=== PATIENT | female | born 2000 | race Caucasian/White ===

== ENCOUNTER 2021-06-14 00:01 | Inpatient (IN) | payer OTHER, SELFPAY ==
[2021-06-14] VITALS (127 sets, daily range): BP systolic 85–128; BP diastolic 40–89; PULSE 61–225; RESP 18–20; TEMP 36.1–36.9; O2SAT 95–100; BMI 26.1
[2021-06-14] MEDS: DINOPROSTONE 10 MG VAG INSERT VAGINAL (01:16)
[2021-06-14 02:15] LABS: Basophils Percent Auto 0.3 % (0.2-1.2); Eosinophils Absolute Auto 0.7 K/mm3 (0-0.3); Eosinophils Percent Auto 6.5 % (0-4.4); Hematocrit 30.1 % (37.0-47.0); Hemoglobin 9.5 g/dL (12.0-15.0); Immature Granulocyte Absolute 0.07 K/mm3 (0.00-0.031); Immature Granulocyte Percent A 0.7 % (0-0.5); Lymphocytes Absolute Auto 2.69 K/mm3 (0.9-3.2); Lymphocytes Percent Auto 26.7 % (18.3-44.2); Mean Corpuscular HGB Conc 31.6 g/dl (32-36); Mean Corpuscular Hemoglobin 24.9 pg (26-34); Mean Corpuscular Volume 78.8 fl (80-100); Mean Platelet Volume 11.6 fl (7.4-10.4); Monocytes Absolute Auto 0.9 K/mm3 (0.1-0.6); Neutrophils Absolute Auto 5.7 K/mm3 (1.3-6.7); Neutrophils Percent Auto 56.8 % (45.5-73.1); Platelet Count Result 230 k/mm3 (150-375); Red Blood Count 3.82 M/mm3 (4.2-5.4); White Blood Count 10.1 K/mm3 (4.5-10.0)
--- NOTE | 2021-06-14 02:49 | LDADM ---
This patient, Gabby Shah, was admitted to Labor/Delivery/Recovery 104 on 06/14/21 at 00:01. Plans for labor, pain management and were discussed with patient. Patient/family oriented to hospital policies and general routines including ID bracelet, bed and alarms, visiting hours, pain management, procedures, bathroom and other care routines, personal items, smoking policy, room service/diet and guest tray routines, infant security routines, and visiting hours. Patient/Family are encouraged to report perceived risks to care and to ask questions if they do not understand what they are told or what they should do. See OBIX for further documentation.
[2021-06-14 09:25] LABS: Rapid Plasma Reagin Non-Reactive (NonReactive)
--- NOTE | 2021-06-14 12:17 | PM.IMHP ---
H&P: HPI History of Present Illness Date/Time: 06/14/21 12:17 20yo at 39w0d presenting for elective term induction of labor. Doing well, feeling some contractions. No other issues or complaints. Chief Complaint: Induction of labor Review of Systems Constitutional: Constitutional: Reports no additional constitutional complaints Eyes: Eyes: Reports no additional eye complaints ENT: Reports system reviewed and no additional complaints, except as documented Cardiovascular: Cardiovascular: Reports no additional cardiovascular complaints Respiratory: Respiratory: Reports no additional respiratory complaints Gastrointestinal: Gastrointestinal: Reports no additional gastrointestinal complaints Genitourinary: Genitourinary: Reports no additional female genitourinary complaints Musculoskeletal: Musculoskeletal: Reports no additional musculoskeletal complaints Integumentary/Breasts: Skin/Breast: Reports system reviewed and no additional complaints, except as docu Neurologic: Reports system reviewed and no additional complaints, except as documented Psychiatric: Psychiatric: Reports no additional psychiatric complaints Endocrine: Endocrine: Reports no additional endocrine complaints Hematologic/Lymphatic: Hematologic/Lymphatic: Reports no additional hematologic/lymphatic complaints Allergic/Immunologic: Allergic/Immunologic: Reports no additional allergic/immunologic complaints [facility] Family History Family History Other No pertinent family history Social History Social History Smoking status: Former smoker Substance use: never Gender identity (if verbalized by the patient): Female Spiritual care concerns: No Meds Home Medications and Allergies Home Medications Medication Instructions Recorded Confirmed Type PNV cmb#95-ferrous fumarate-FA 1 tablet PO DAILY 06/11/21 06/11/21 History [] Allergies Allergy/AdvReac Type Severity Reaction Status Date / Time cyclobenzaprine Allergy Unknown Unknown Verified 03/01/19 12:50 Vital Signs Vital Signs - 24 hr 06/14/21 00:46 06/14/21 00:47 06/14/21 01:00 Temperature 36.1 C L Pulse Rate 79 87 Respiratory Rate Blood Pressure 107/67 115/66 06/14/21 01:30 06/14/21 01:45 06/14/21 02:00 Temperature Pulse Rate 82 92 94 Respiratory Rate Blood Pressure 114/69 112/60 92/61 L 06/14/21 02:15 06/14/21 02:30 06/14/21 02:45 Temperature Pulse Rate 66 70 86 Respiratory Rate Blood Pressure 87/40 L 86/40 L 92/52 L 06/14/21 03:00 06/14/21 03:05 06/14/21 03:16 Temperature Pulse Rate 81 84 84 Respiratory Rate Blood Pressure 88/44 L 108/61 101/54 L 06/14/21 07:21 06/14/21 07:22 06/14/21 09:29 Temperature 36.3 C L 36.2 C L Pulse Rate 80 Respiratory Rate 18 20 Blood Pressure 121/63 06/14/21 09:30 Temperature Pulse Rate 73 Respiratory Rate Blood Pressure 93/41 L Exam Const: General: cooperative, healthy appearing, comfortable, no acute distress, well developed, alert, awake and Physically active Resp: Effort & Inspection: normal respiratory effort, able to speak in complete sentences, normal respiratory pattern, no audible wheezes and no cough Cardio: Rate: regular rate GI: GI Palp: No abdominal tenderness, Yes Soft to palpation and No Tenderness to palpation present (GI) : Manual OB Exam: other (deferred, cervidil in place) Neuro: General: oriented to person, oriented to place and oriented to time Psych: Appearance: grossly normal Mental Status: mental status grossly normal Speech and movement: Normal speech and movement present Affect: normal affect Attitude: cooperative Thought process: Normal thought process present Thought content: Yes Normal thought content present Insight: Good insight present (Psych) Judgement: Good judgement present (Psych) H&P: Results Labs
--- NOTE | 2021-06-14 12:28 | WPDHPUPDATE1 ---
History and Physical Update Update Date/Time: 06/14/21 12:28 History and Physical has been reviewed, including an updated exam of the patient. There are NO changes in the patient's condition. Risks, benefits, and alternatives have been discussed and questions answered. Patient agrees to proceed with procedure.
[2021-06-14] MEDS: LACTATED RINGERS 1,000 ML 125 ML IV CONT ×3 (13:30→20:43)
[2021-06-14] MEDS: OXYTOCIN 30 UNITS/NS 500 ML 30 UNITS/500 ML BAG IV CONT (13:30)
--- NOTE | 2021-06-14 14:05 | PM.OBPNVD ---
OB - PN: Subj Subjective Date/time seen: 06/14/21 14:05 AROM. Clear fluid. 2.5/40/-3. Category 1 tracing. OB - PN: Obj Data Labs CBC & Chem 7: 06/14/21 01:11 Labs: Laboratory Results - last 24 hr 06/14/21 06/14/21 06/14/21 01:11 01:11 01:11 WBC 10.1 H RBC 3.82 L Hgb 9.5 L Hct 30.1 L MCV 78.8 L MCH 24.9 L MCHC 31.6 L RDW 15.0 H Plt Count 230 MPV 11.6 H Immature Gran % (Auto) 0.7 H Neut % (Auto) 56.8 Lymph % (Auto) 26.7 Garrard % (Auto) 9.0 H Eos % (Auto) 6.5 H Baso % (Auto) 0.3 Lymph # (Auto) 2.69 Garrard # (Auto) 0.9 H Eos # (Auto) 0.7 H Baso # (Auto) 0.0 Abs Immat Gran (auto) 0.07 H Absolute Neuts (auto) 5.7 Absolute Nucleated RBC 0.0 Nucleated RBC % 0.0 RPR Non-reactive HIV 1&2 Ab/P24 Ag 4thGn Cancelled Blood Type Antibody Screen 06/14/21 01:11 WBC RBC Hgb Hct MCV MCH MCHC RDW Plt Count MPV Immature Gran % (Auto) Neut % (Auto) Lymph % (Auto) Garrard % (Auto) Eos % (Auto) Baso % (Auto) Lymph # (Auto) Garrard # (Auto) Eos # (Auto) Baso # (Auto) Abs Immat Gran (auto) Absolute Neuts (auto) Absolute Nucleated RBC Nucleated RBC % RPR HIV 1&2 Ab/P24 Ag 4thGn Blood Type A Positive Antibody Screen Negative OB - PN A/P Time Spent With Patient Time: Total time spent is greater than 50% in coordination of care (as documented) at patient's floor/unit and/or counseling patient:
[2021-06-15] VITALS (17 sets, daily range): BP systolic 103–122; BP diastolic 59–82; PULSE 56–95; RESP 16–18; TEMP 36.4–37; O2SAT 99–100
--- NOTE | 2021-06-15 00:04 | PM.OBPRVD ---
OB - Delivery Note Procedure Delivery date: 06/14/21 Procedure: Normal spontaneous vaginal delivery complicated by shoulder dystocia Induction method: AROM, per pitocin protocol and per cervidil protocol Delivery augmentation: pitocin Delivery monitor: external FHT and external uterine Route of delivery: (complicated by shoulder dystocia) Laceration Description: None Specimen: Yes Quantitative Blood Loss (ml): 100 Anesthesia type: Epidural Complications: Shoulder dystocia (left shoulder) Narrative: Once she was noted to be complete and ready to push, the labor bed was broken down and legs were placed in stirrups for support. With contractions and maternal efforts, the presented in OA position. The head was delivered. Checked for nuchal cord, no nuchal cord noted. Gentle downward traction was applied, however, the anterior shoulder could not be delivered. At this time, shoulder dystocia was diagnosed. Patient was placed in Omar position and suprapubic pressure was applied. Delivery of the posterior arm was attempted, but not successful. This was then followed by Demarco's rotational maneuver. Once rotation was accomplished, the delivery of the posterior arm was attempted again. This time, the posterior shoulder was able to be delivered successfully. The rest of the was delivered. Left shoulder was the anterior shoulder. Head was delivered at 2336 and body was delivered at 2337. The did cry once delivered. The cord was clamped and cut and the was passed off to the awaiting nurses. Cord gasses collected Placenta was delivered spontaneously with gentle traction. IV oxytocin administered and fundal massage applied. Exam was performed to identify any lacerations. No lacerations noted. Good hemostasis noted. Patient tolerated the procedure well. All instrument and sponge counts were correct at the end of the procedure. was moving both arms with slightly decreased movement in the left arm. Mother and father were debriefed regarding the diagnosis of shoulder dystocia and all questions and concerns were answered. Baby Date of : 06/14/21 Time of : 23:37 Weeks of gestation at delivery: 39 Infant gender: Female Weight (pounds): 8 Weight (ounces): 13 presentation: vertex Placenta delivery description: Spontaneous cord vessel description: 3 Vessels score one minute: 8 score five minutes: 9
[2021-06-15] MEDS: OXYTOCIN 30 UNITS/NS 500 ML 30 UNITS/500 ML BAG 125 UNITS IV CONT (00:09)
[2021-06-15] MEDS: BENZOCAINE 20% AER SPR (*SP) 56 GM CAN 1 SPRAY TOPICAL (02:00)
[2021-06-15] MEDS: WITCH HAZEL 40 PADS 1 PAD TOPICAL (02:00)
[2021-06-15] MEDS: IBUPROFEN 600 MG TABLET PO ×2 (02:48→19:24)
[2021-06-15 05:27] LABS: Hematocrit 31.4 % (37.0-47.0); Hemoglobin 9.8 g/dL (12.0-15.0)
--- NOTE | 2021-06-15 07:18 | P.DS_ITS ---
DS: Admitting Diagnosis Admitting Diagnosis Admitting Diagnosis: OB - DS: Summary OB Procedures : None OB Procedures Intrapartum: Spontaneous Vag Delivery OB Procedures: : None Time Spent with Patient Time attestation: Total time spent providing and/or coordinating discharge services: DS: Data Data Completed and Pending Pending studies at discharge: Pending at discharge 06/14/21 22:45 Surgical [PTH] Routine Labs on day of discharge: Labs from last 24 hours 06/15/21 06/14/21 05:17 01:11 Hgb 9.8 L Hct 31.4 L RPR Non-reactive Discharge Plan Discharge Discharging Clinician: Maximo Nunn Anticipated Discharge Date/Time: 06/16/21 08:19 Patient Disposition: Home, Self-Care Activity: as tolerated Diet: as tolerated Patient Instructions: Antibiotic Form Stand Alone Forms: General Discharge Information Follow-up/Referrals: Halley Carmichael DO [Physician] - 3 Weeks Discharge Medications: New ibuprofen 600 mg Tablet 600 mg PO Q6H PRN (Reason: Cramping) Qty: 30 RF: 0 Continued PNV cmb#95-ferrous fumarate-FA [] 28 mg iron- 800 mcg Tablet 1 tablet PO DAILY RF: 0 Date of admission: 06/14/21 00:01 Primary Care Provider: PHYSICIAN,ANTIQUE FURNITURE REPRODUCER Admitting Provider: Halley Carmichael Attending physician on admission: Halley Carmichael Condition: Stable
[2021-06-15] MEDS: POLYSACCHARIDE IRON COMPLEX 150 MG CAPSULE PO (09:12)
[2021-06-15] MEDS: MULTIVIT/MIN/PREN/FOL AC/IRON TABLET 1 TAB PO (09:12)
--- NOTE | 2021-06-15 13:50 | PC.NURSE ---
Consult with pt., mother reports infant is eagerly feeding. Mother attempted with first child for a few days. Mother states this is eager and latching well. Infant is able to freely thrust tongue past gum ridge and flange both lips. Skin is intact on both nipples, no redness and bruising noted. Reviewed infant feeding cues, frequencies, duration of feedings, feeding elimination flow sheet, and signs of adequate intake. Demonstrated stimulation techniques to wake for feeding. Assisted with infant to breast. Reviewed positioning/alignment in cross cradle, holding breast in ?U? hold and guided asymmetrical latch on. Discussed rational for each. Infant able to latch correctly. nursed eagerly, with steady draws and frequent swallowing noted. Suggested mother stimulate while feeding to increase stimulate, increase intake and to assist with maintaining deep latch. Reviewed signs of a correct latch, effective nursing and suck swallow ratio. Infant would slip to shallow latch, mother reports tenderness. Demonstrated how to adjust latch more deeply while feeding. Mother reports she can feel change in latch and has no tenderness. Nipple care reviewed of lanolin after feedings, warm compresses as needed. Instructed mother to call out for RN assistance if she is unable to latch for feeding or she has discomfort with nursing. Mother is feeding as required and waking to feed if needed. Reviewed transition to breast milk, signs of adequate intake, and engorgement/relief. Instructed to call ICP if intake/output less than required. Reviewed regular medications mother is taking. Information provided per Anh. Reviewed community resources on the [facility] website and in the Mom/Baby guide. Information on outpatient services provided. Mother has no further questions at this time.
--- NOTE | 2021-06-15 19:37 | OBPPTRN ---
Patient ambulated to post room #284 . Support person present. Oriented to unit, room, information board, rooming in, admission packet reiterated and security measures reiterated. Patient verbalizes understanding.
[2021-06-16] MEDS: IBUPROFEN 600 MG TABLET PO ×2 (00:49→09:06)
[2021-06-16] MEDS: LANOLIN (LANSINOH) 7.5 GM CREAM 1 APPLIC TOPICAL (00:50)
[2021-06-16] MEDS: DIBUCAINE 1% OINTMENT 30 GM TUBE 1 APPLIC TOPICAL (00:50)
[2021-06-16 08:50] VITALS: BP 107/72; PULSE 68; RESP 18; TEMP 36.7; O2SAT 100
--- NOTE | 2021-06-16 09:00 | PC.NURSE ---
Patient viewed the discharge video Mother & Baby Care, The First Two Weeks . Patient was given the opportunity and encouraged to ask questions. Patient verbalized understanding of information shared and has been given the mother/baby guide for home reference.
[2021-06-16] MEDS: DOCUSATE SODIUM 100 MG CAPSULE PO (09:06)
[2021-06-16] MEDS: POLYSACCHARIDE IRON COMPLEX 150 MG CAPSULE PO (09:06)
[2021-06-16] MEDS: MULTIVIT/MIN/PREN/FOL AC/IRON TABLET 1 TAB PO (09:06)
[2021-06-16] MEDS: MEASLES,MUMPS,RUBELLA VACCINE 0.5 ML VIAL SUB-Q (10:46)
--- NOTE | 2021-06-16 11:31 | PCCCNOTE ---
Care Coordination met with pt. this morning to discuss discharge planning. Pt.'s current D/C plan is to return home with her and children. This is pt.'s 3rd baby. Pt. states her is supportive and that they have local friend support. Pt. has everything needed to safely bring baby home. Pt. has car seat in the room. She states she is current with [facility]. Pt. tested positive for THC during , baby was tested and her urine test came back positive for THC. Meconium is still pending. Pt. informed CC that she used Marijuana throughout the to assist with sleeping and her appetite. CC has report drug use to [facility] using online report system. Pt.'s case ID number is [id number]. Pt. has no questions or concerns at this time. Will follow.
[2021-06-18 13:00] VITALS: BP 111/64; PULSE 57; RESP 20; TEMP 37.1; O2SAT 100
--- NOTE | 2021-06-19 15:44 | PM.OBDSVD ---
DS: Admitting Diagnosis Admitting Diagnosis Admitting Diagnosis: OB - DS: Summary OB Procedures : None OB Procedures Intrapartum: Spontaneous Vag Delivery OB Procedures: : None Time Spent with Patient Time attestation: Total time spent providing and/or coordinating discharge services: DS: Data Data Completed and Pending Pending studies at discharge: Pending at discharge 06/14/21 22:45 Surgical [PTH] Routine Discharge Plan Discharge Discharging Clinician: Maximo Nunn Anticipated Discharge Date/Time: 06/16/21 08:19 Patient Disposition: Home, Self-Care Activity: as tolerated Diet: as tolerated Discharge Instructions: Education: Mom and Baby Guide and Preeclampsia Given to: Mother Follow-Up: Call your delivering provider's office for an appointment to be seen in: 3 weeks Mom and baby should come to the [facility] for the follow-up appointment. Appointment Date/Time: June 18, 2021 at 12:30 pm What to expect at your follow-up visit: Physical Assessment Call [phone] if you are unable to keep your appointment time. BREAST CARE: * Wear a snug supportive bra. * For engorgement discomfort: Breast Feeding: * Apply warm moist washcloths * Express milk as needed to relieve engorgement * Wear loose clothing * For sore nipples: * Identify correct latch-on * Apply warm moist washcloths before and after nursing * Air dry nipples after nursing * May apply Lansinoh cream to nipples EPISIOTOMY/PERINEAL CARE: * Until bleeding stops, use your charlie bottle after urinating * Change your pad frequently throughout the day * You may take sitz baths several times a day (fill your bathtub with warm water and soak for 20 minutes.) Do NOT bathe in the water * No tub baths until seen by your physician - You may shower ACTIVITY: * Rest as much as possible. * Do not exercise or lift anything heavier than your baby (such as laundry or other children.) * Avoid stairs or driving as much as possible. * Do not put anything into the vagina. No douching, tampons, or sexual activity until seen by physician. NOTIFY PHYSICIAN IF YOU HAVE ANY QUESTIONS OR IF ANY OF THE FOLLOWING SYMPTOMS OCCUR: * If your perineum becomes red, swollen, or more painful than what you have experienced in the hospital. * If your vaginal bleeding becomes foul smelling. * If your vaginal bleeding becomes more heavy than a period or if your bleeding changes from pink to bright red. However, you may pass an occasional walnut-sized clot once or twice for the first week . * If you experience a sharp, shooting pain in you calves. * If you discover a hard, reddened area on your breast or if you experience flu-like symptoms. DIET: * Eat regular, well-balanced meals. * Drink plenty of fluids daily. If , drink to thirst. Stand Alone Forms: General Discharge Information Follow-up/Referrals: Halley Carmichael DO [Physician] - 3 Weeks Discharge Medications: New ibuprofen 600 mg Tablet 600 mg PO Q6H PRN (Reason: Cramping) Qty: 30 RF: 0 Continued PNV cmb#95-ferrous fumarate-FA [] 28 mg iron- 800 mcg Tablet 1 tablet PO DAILY RF: 0 Date of admission: 06/14/21 00:01 Primary Care Provider: PHYSICIAN,NEWSPAPER PHOTO EDITOR Admitting Provider: Halley Carmichael Attending physician on admission: Maximo Nunn Condition: Stable
== END 2021-06-16 11:40 | disposition home or self-care (01) | DRG 560 ==
LOC: ANHLDR 03:42 → ANHOBPP 06-15 07:19 → ANHLDR 06-19 10:52 → ANHOB2 06-19 10:52 → ANHOBPP 06-19 10:52
PROVIDERS: Admitting Provider Obstetrics & Gynecology; Visit Provider Obstetrics & Gynecology
DX: O66.0 Obstructed labor due to shoulder dystocia (principal); Z37.0 Single live birth; Z3A.39 39 weeks gestation of pregnancy
CPT/HCPCS: 36415; 85014; 85018; 85025; 86592; 86703; 86850; 86900; 86901; 88307; 90710; A9270; G0432; J2590; J2795; J7120